=== PATIENT | female | born 1995 | race Caucasian/White ===

== ENCOUNTER 2017-10-21 11:53 | Emergency (ER) | payer OTHER ==
[2017-10-21] MEDS ORDERED: Sodium Chloride 0.9% 1,000 ML IV ONE ×2 (12:30→12:32)
[2017-10-21] MEDS ORDERED: Ondansetron 4 MG/2 ML SDV IVPUSH ONE (12:30)
[2017-10-21] MEDS ORDERED: Sodium Chloride 0.9% 10 ML Syringe FLUSH PRN ×2 (12:30→13:48)
[2017-10-21] MEDS ORDERED: Sodium Chloride 0.9% 1,000 ML ONE (12:31)
--- NOTE | 2017-10-21 12:33 | EDM.PDOC ---
ED HPI GENERAL MEDICAL PROBLEM - General Chief Complaint: Abdominal Pain Stated Complaint: R SIDE PAIN Time Seen by Provider: 10/21/17 12:21 Source of Information: Reports: Patient History Limitations: Reports: No Limitations - History of Present Illness INITIAL COMMENTS - FREE TEXT/NARRATIVE: Patient is a 22-year-old female on control presents ED complaining of right lower back/flank/right lower quadrant abdominal pain. Pain initially started on Saturday along her right kidney and has progressed to the areas as listed above. Pain is mostly isolated to the right lower quadrant. She does note some increased frequency of urination but notes no dysuria abnormal smell and/or abnormal vaginal discharge. She does have her appendix. She's had no history of kidney stones. States one month ago she was diagnosed with a kidney infection and placed on ciprofloxacin. No studies were obtained. She has no history of STDs. States she may have had a miscarriage x1 due to abnormal heavy vaginal bleeding. Patient states no studies or labs were obtained at that time. Patient does not believe this was the case. Pain is constant increased with movement described as sharp with no improvement with rest. She's had a poor appetite with nausea/vomiting with 4 episodes of emesis. No documented fever. Pain is currently rated 5 out of 10. She is not anxious with being evaluated in ED. She has no additional past medical history and currently taking no other meds. Surgical history none. Patient does not smoke or use recreational drugs. Alcohol use seldom. Treatments SEQUINS WINDER: Reports: NSAIDS Right Abdominal Pain Score (Numeric/FACES): 6 - Related Data Allergies Allergy/AdvReac Type Severity Reaction Status Date / Time Sulfa (Sulfonamide Allergy Other Verified 10/21/17 12:06 Antibiotics) Home Meds: Home Meds . [No Known Home Meds] 10/21/17 [History] Control 10/21/17 [History] ED ROS GENERAL - Review of Systems Review Of Systems: ROS reveals no pertinent complaints other than HPI. ED EXAM, GI/ABD - Physical Exam Exam: See Below Exam Limited By: No Limitations General Appearance: Alert, WD/WN, Anxious, Mild Distress Ears: Hearing Grossly Normal Nose: Normal Inspection Throat/Mouth: Normal Voice, No Airway Compromise Neck: Normal Inspection, Supple Respiratory/Chest: No Respiratory Distress, Lungs Clear, Normal Breath Sounds, Chest Non-Tender Cardiovascular: Normal Peripheral Pulses, Tachycardia GI/Abdominal Exam: Normal Bowel Sounds, Soft, No Organomegaly, No Distention, Tender (RLQ: + McBurney's point tenderness. No peritoneal signs. No tenderness to the right upper quadrant. No adnexal tenderness. No suprapubic tenderness as well. ) (Female) Exam: Deferred Back Exam: Normal Inspection, Other (Pain along the right lower back/flank.). No: CVA Tenderness (L), CVA Tenderness (R) Neurological: Alert, Oriented, CN II-XII Intact, Normal Cognition, No Motor/ Sensory Deficits Psychiatric: Normal Affect, Normal Mood Skin Exam: Warm, Dry, Intact, No Rash, Pallor Course - Vital Signs Last Recorded V/S: Last Vital Signs Temp 99.4 F 10/21/17 15:54 Pulse 134 H 10/21/17 15:54 Resp 16 10/21/17 15:54 BP 105/76 10/21/17 15:54 Pulse Ox 100 10/21/17 15:54 Orthostatic Blood Pressure [ 91/65 Standing] Orthostatic Blood Pressure [ 114/86 Sitting] Orthostatic Blood Pressure [ 108/77 Supine] - Orders/Labs/Meds Orders: Active Orders 24 hr Category Date Time Status Peripheral IV Care [RC] . DIRECTED Care 10/21/17 12:30 Active Abdomen Pelvis w Cont [CT] Stat Exams 10/21/17 13:28 Taken CULTURE BLOOD [BC] Stat Lab 10/21/17 12:50 Received CULTURE BLOOD [BC] Stat Lab 10/21/17 12:55 Received CULTURE URINE [RM] Stat Lab 10/21/17 13:40 Received Sodium Chloride 0.9% [Normal Saline] 1,000 ml Med 10/21/17 16:00 Active IV ASDIRECTED Sodium Chloride 0.9% [Saline Flush] Med 10/21/17 12:30 Active 10 ml FLUSH ASDIRECTED PRN Sodium Chloride 0.9% [Saline Flush] Med 10/21/17 13:48 Active 10 ml FLUSH ONETIME PRN Blood Culture x2 Reflex Set [OM.PC] Stat Oth 10/21/17 12:32 Ordered Peripheral IV Insertion Adult [OM.PC] Routine Oth 10/21/17 12:30 Ordered Medication Orders Sodium Chloride (Normal Saline) 1,000 mls @ 250 mls/hr IV ASDIRECTED RUFINO Sodium Chloride (Saline Flush) 10 ml FLUSH ASDIRECTED PRN PRN Reason: Keep Vein Open Last Admin: 10/21/17 12:25 Dose: 10 ml Sodium Chloride (Saline Flush) 10 ml FLUSH ONETIME PRN PRN Reason: IV FLUSH Last Admin: 10/21/17 15:02 Dose: 10 ml Labs: Laboratory Tests 10/21/17 10/21/17 10/21/17 Range/Units 12:25 12:25 12:50 WBC 17.68 H (3.98-10.04) K/mm3 RBC 4.47 (3.98-5.22) M/mm3 Hgb 13.0 (11.2-15.7) gm/L Hct 39.8 (34.1-44.9) % MCV 89.0 (79.4-94.8) fl MCH 29.1 (25.6-32.2) pg MCHC 32.7 (32.2-35.5) g/dl RDW Std Deviation 45.9 (36.4-46.3) fL Plt Count 220 (182-369) K/mm3 MPV 11.4 (9.4-12.3) fl Neutrophils % (Manual) 66 H (40-60) % Band Neutrophils % 19 H (0-10) % Lymphocytes % (Manual) 10 L (20-40) % Atypical Lymphs % 0 % Monocytes % (Manual) 5 (2-10) % Eosinophils % (Manual) 0 L (0.7-5.8) % Basophils % (Manual) 0 L (0.1-1.2) Platelet Estimate Adequate RBC Morph Comment Normal Sodium 136 (136-145) mEq/L Potassium 4.6 (3.5-5.1) mEq/L Chloride 103 (98-107) mEq/L Carbon Dioxide 22 (21-32) mEq/L Anion Gap 15.6 H (5-15) BUN 14 (7-18) mg/dL Creatinine 1.4 H (0.55-1.02) mg/dL Est Cr Clr Drug Dosing 45.66 mL/min Estimated GFR (MDRD) 47 (>60) mL/min BUN/Creatinine Ratio 10.0 L (14-18) Glucose 112 H (74-106) mg/dL Lactic Acid 2.2 H (0.4-2.0) mmol/L Calcium 9.3 (8.5-10.1) mg/dL Total Bilirubin 0.5 (0.2-1.0) mg/dL AST 31 (15-37) U/L ALT 24 (14-59) U/L Alkaline Phosphatase 56 (46-116) U/L C-Reactive Protein 38.1 H* (<1.0) mg/dL Total Protein 7.3 (6.4-8.2) g/dl Albumin 3.2 L (3.4-5.0) g/dl Globulin 4.1 gm/dL Albumin/Globulin Ratio 0.8 L (1-2) HCG, Qual (NEGATIVE) Urine Color (Yellow) Urine Appearance (Clear) Urine pH (5.0-8.0) Ur Specific Drake (1.005-1.030) Urine Protein (Negative) Urine Glucose (UA) (Negative) Urine Ketones (Negative) Urine Occult Blood (Negative) Urine Nitrite (Negative) Urine Bilirubin (Negative) Urine Urobilinogen (0.2-1.0) Ur Leukocyte Esterase (Negative) Urine RBC (0-5) /hpf Urine WBC (0-5) /hpf Ur Epithelial Cells (0-5) /hpf Urine Bacteria (FEW) /hpf Urine Mucus (FEW) /hpf 10/21/17 10/21/17 Range/Units 13:30 13:40 WBC (3.98-10.04) K/mm3 RBC (3.98-5.22) M/mm3 Hgb (11.2-15.7) gm/L Hct (34.1-44.9) % MCV (79.4-94.8) fl MCH (25.6-32.2) pg MCHC (32.2-35.5) g/dl RDW Std Deviation (36.4-46.3) fL Plt Count (182-369) K/mm3 MPV (9.4-12.3) fl Neutrophils % (Manual) (40-60) % Band Neutrophils % (0-10) % Lymphocytes % (Manual) (20-40) % Atypical Lymphs % % Monocytes % (Manual) (2-10) % Eosinophils % (Manual) (0.7-5.8) % Basophils % (Manual) (0.1-1.2) Platelet Estimate RBC Morph Comment Sodium (136-145) mEq/L Potassium (3.5-5.1) mEq/L Chloride (98-107) mEq/L Carbon Dioxide (21-32) mEq/L Anion Gap (5-15) BUN (7-18) mg/dL Creatinine (0.55-1.02) mg/dL Est Cr Clr Drug Dosing mL/min Estimated GFR (MDRD) (>60) mL/min BUN/Creatinine Ratio (14-18) Glucose (74-106) mg/dL Lactic Acid (0.4-2.0) mmol/L Calcium (8.5-10.1) mg/dL Total Bilirubin (0.2-1.0) mg/dL AST (15-37) U/L ALT (14-59) U/L Alkaline Phosphatase (46-116) U/L C-Reactive Protein (<1.0) mg/dL Total Protein (6.4-8.2) g/dl Albumin (3.4-5.0) g/dl Globulin gm/dL Albumin/Globulin Ratio (1-2) HCG, Qual Negative (NEGATIVE) Urine Color Yellow (Yellow) Urine Appearance Clear (Clear) Urine pH 6.5 (5.0-8.0) Ur Specific Drake > or = 1.030 (1.005-1.030) Urine Protein 3+ H (Negative) Urine Glucose (UA) Negative (Negative) Urine Ketones 2+ H (Negative) Urine Occult Blood 1+ H (Negative) Urine Nitrite Negative (Negative) Urine Bilirubin Negative (Negative) Urine Urobilinogen 0.2 (0.2-1.0) Ur Leukocyte Esterase 1+ H (Negative) Urine RBC 5-10 H (0-5) /hpf Urine WBC 10-20 H (0-5) /hpf Ur Epithelial Cells 0-5 (0-5) /hpf Urine Bacteria Few (FEW) /hpf Urine Mucus Few (FEW) /hpf Meds: Medications Generic Name Dose Route Start Last Admin Trade Name Freq PRN Reason Stop Dose Admin Sodium Chloride 1,000 mls @ 250 mls/hr 10/21/17 16:00 Normal Saline IV ASDIRECTED RUFINO Sodium Chloride 10 ml 10/21/17 12:30 10/21/17 12:25 Saline Flush FLUSH 10 ml ASDIRECTED PRN Administration Keep Vein Open Sodium Chloride 10 ml 10/21/17 13:48 10/21/17 15:02 Saline Flush FLUSH 10 ml ONETIME PRN Administration IV FLUSH Discontinued Medications Generic Name Dose Route Start Last Admin Trade Name Leanne PRN Reason Stop Dose Admin Diatrizoate Meglum/Diatrizoate Sod 120 ml 10/21/17 13:48 10/21/17 15:02 Gastrografin 37% PO 10/21/17 13:49 90 ml ONETIME ONE Administration Hydromorphone HCl 0.25 mg 10/21/17 13:01 10/21/17 13:49 Dilaudid IVPUSH 10/21/17 13:02 0.25 mg ONETIME ONE Administration Hydromorphone HCl 0.25 mg 10/21/17 16:00 Dilaudid IVPUSH 10/21/17 16:01 ONETIME ONE Sodium Chloride 1,000 mls @ 999 mls/hr 10/21/17 12:30 10/21/17 12:35 Normal Saline IV 10/21/17 13:30 999 mls/hr ONETIME ONE Administration Sodium Chloride 1,000 mls @ 999 mls/hr 10/21/17 12:32 10/21/17 13:45 Normal Saline IV 10/21/17 13:32 999 mls/hr ONETIME ONE Administration Sodium Chloride Confirm 10/21/17 12:31 10/21/17 12:39 Normal Saline Administered 10/21/17 12:32 Not Given Dose 1,000 mls @ as directed .ROUTE .STK-MED ONE Cefepime HCl 2 gm/ Premix 50 mls @ 100 mls/hr 10/21/17 13:56 10/21/17 14:30 IV 10/21/17 14:25 100 mls/hr ONETIME ONE Administration Iopamidol 100 ml 10/21/17 13:48 10/21/17 15:02 Isovue-300 (61%) IVPUSH 10/21/17 13:49 100 ml ONETIME ONE Administration Ondansetron HCl 4 mg 10/21/17 12:30 10/21/17 12:50 Zofran IVPUSH 10/21/17 12:31 4 mg ONETIME ONE Administration - Re-Assessments/Exams Free Text/Narrative Re-Assessment/Exam: Patient is pale with elevated heart rate in the 140s with right lower quadrant abdominal pain. Orthostatic vitals were positive. IV established with normal saline 2 L IV fluids. Zofran 4 mg IVP ordered. Initial labs and studies will include: CBC, chem 14, CRP, blood cultures 2, lactic acid, UA, hCG qualitative. Patient is septic secondary to appendicitis vs. pyelnephritis. 10/21/17 13:02 Patients BP is 106/s. Pain persists. Ordered dilaudid 0.25mg IVP. Labs reviewed: White blood cell count 17.68, neutrophil percentage is 66, bands 19, AG 15.6, creatinine 1.4, lactic acid 2.2, CRP 38.1. UA has not been obtained. 10/21/17 13:29 No HCG via UA yet. I have ordered Serum HCG. Called the lab to notify of changes. UA hcg has been cancelled. HCG was negative. CT of the abdomen and pelvis has been ordered to rule out appendicitis. 1400 Due to elevated WBC with left shift with pain to RLQ suspect she has appendicitis. I have ordered cefepime 2 grams IV after discussion with Dr. Smiley. 1402 Reassessment, blood pressure 103/76, heart rate 124, SPO2 100. Patients pain is doing well. Persists to the mcburneys point. UA came back positive for 3+ protein, ketones 2+, occult blood 1+, nitrates negative, leukocyte Estrace one plus, urine rbc's 5-10, urine wbc's 10-20. Urine culture has been ordered. Awaiting for results of CT of the abdomen and pelvis. CT abdomen/pelvis IMPRESSION: Right pyelonephritis with associated mild right hydroureteronephrosis secondary to 7 mm calculus in the mid to distal right ureter. 10/21/17 16:01 BP 105/76, HR 131, SPO2 100, afebrile. Spoke with Dr. Fuentes assistant professor of education Hospitalist. He has accepted the patient. Requested the patient stop in the E.D. to be evaluated just in case immediate intervention is required. I have ordered NS 250mls/hr and dilaudid 0.25mg IVP. 10/21/17 16:06 Per nursing staff patients pain is currently 1-10. Dilaudid has been cancelled. Patient last ate a 630 last night. [facility] transport. [facility] will be transporting the patient. 10/21/17 16:58 Ambulance has not arrived. BP 113/74, heart rate 138, SPO2 100%. Departure - Departure Time of Disposition: 16:07 Disposition: Admitted As Inpatient 67 Condition: Poor Clinical Impression: Pyelonephritis, Hydroureteronephrosis Sepsis Qualifiers: Sepsis type: sepsis due to unspecified organism Qualified Code(s): A41.9 - Sepsis, unspecified organism - Discharge Information Referrals: PCP,None [Primary Care Provider] - Forms: ED Department Discharge - My Orders Last 24 Hours: My Active Orders 10/21/17 12:30 Peripheral IV Care [RC] . DIRECTED Sodium Chloride 0.9% [Saline Flush] 10 ml FLUSH ASDIRECTED PRN Peripheral IV Insertion Adult [OM.PC] Routine 10/21/17 12:32 Blood Culture x2 Reflex Set [OM.PC] Stat 10/21/17 12:50 CULTURE BLOOD [BC] Stat 10/21/17 12:55 CULTURE BLOOD [BC] Stat 10/21/17 13:28 Abdomen Pelvis w Cont [CT] Stat 10/21/17 13:40 CULTURE URINE [RM] Stat 10/21/17 13:48 Sodium Chloride 0.9% [Saline Flush] 10 ml FLUSH ONETIME PRN 10/21/17 16:00 Sodium Chloride 0.9% [Normal Saline] 1,000 ml IV ASDIRECTED - Assessment/Plan Last 24 Hours: My Active Orders 10/21/17 12:30 Peripheral IV Care [RC] . DIRECTED Sodium Chloride 0.9% [Saline Flush] 10 ml FLUSH ASDIRECTED PRN Peripheral IV Insertion Adult [OM.PC] Routine 10/21/17 12:32 Blood Culture x2 Reflex Set [OM.PC] Stat 10/21/17 12:50 CULTURE BLOOD [BC] Stat 10/21/17 12:55 CULTURE BLOOD [BC] Stat 10/21/17 13:28 Abdomen Pelvis w Cont [CT] Stat 10/21/17 13:40 CULTURE URINE [RM] Stat 10/21/17 13:48 Sodium Chloride 0.9% [Saline Flush] 10 ml FLUSH ONETIME PRN 10/21/17 16:00 Sodium Chloride 0.9% [Normal Saline] 1,000 ml IV ASDIRECTED
[2017-10-21] MEDS ORDERED: HYDROmorphone 0.5 MG/0.5 ML SYRINGE IVPUSH ONE ×2 (13:01→16:00)
[2017-10-21] MEDS ORDERED: Iopamidol 612 MG/ML 100 ML Bottle IVPUSH ONE (13:48)
[2017-10-21] MEDS ORDERED: Diatrizoate Meglumine/Diatrizoate Sodium 37% 120 ML Bottle PO ONE (13:48)
[2017-10-21] MEDS ORDERED: Cefepime 2 GM in Premix Bag 1 BAG IV ONE (13:56)
[2017-10-21] MEDS ORDERED: Sodium Chloride 0.9% 1,000 ML IV SCH (16:00)
--- NOTE | 2017-10-23 08:08 | CT ---
CT abdomen and pelvis Technique: Multiple axial sections were obtained from above the dome of the diaphragm inferiorly through the pubic symphysis. Intravenous and oral contrast was utilized. Findings: Delayed enhancement of the right kidney is seen. Right nephrosis is noted. Dilated ureter is seen down to the midpelvis. There is felt to be an obstructing calculus within the mid to distal right ureter measuring about 7.4 mm. No other abnormal calcifications are seen within the kidneys or ureters. Cysts are noted within both kidneys. Finding within the right kidney does not appear to be simple and may represent complicated cyst. Follow-up ultrasound recommended in 6 months. Visualized lung bases shows nothing acute. Liver shows no focal parenchymal abnormality. Spleen appears within normal limits. Adrenal glands appear within normal limits. Pancreas is normal. Gallbladder contains no calcified gallstones. Aorta shows no aneurysmal dilatation. No retroperitoneal adenopathy is seen. Appendix is felt to be seen and appears to be normal. Mild inflammatory change is seen off the inferior right kidney compatible with the obstructive change. No other inflammatory change is seen. Bone window settings were reviewed which appear within normal limits for the patient's age. Impression: 1. Delayed enhancement of the right kidney with inflammatory change seen off the inferior right kidney. Right-sided hydronephrosis is seen. These findings are caused by a 7.4 mm obstructing stone within the distal to mid right ureter located within the mid right pelvis. 2. Complicated low density finding within the right kidney possibly due to complicated cyst. Ultrasound is recommended in 6 months (March,) to further evaluate. 3. Other findings as noted above which are felt to be incidental. Diagnostic code #5 Agree with preliminary report issued by [facility] ([facility] preliminary report dictated on 10/21/17, 4:41 PM Central Time)
== END 2017-10-21 17:25 | disposition critical access hospital (66) ==
LOC: JD.ED 11:53
DX: A41.9 Sepsis, unspecified organism (principal); N13.6 Pyonephrosis; Z88.2 Allergy status to sulfonamides
CPT/HCPCS: 36415; 74177; 80053; 81001; 83605; 84703; 85007; 85027; 86140; 87040; 87086; 96361; 96365; 96375; 99285; J0692; J1170; J2405; J7040; J7050; Q9963; Q9967